=== PATIENT | female | born 1975 | race Asian ===

== ENCOUNTER 2020-03-17 11:24 | Outpatient (REF) | payer OTHER, SELFPAY ==
--- NOTE | 2020-03-17 | US_ITS ---
EXAMINATION: US PELVIS COMPLETE CLINICAL INFORMATION: Menorrhagia. COMPARISON: None. TECHNIQUE: Transabdominal and transvaginal ultrasound of the pelvis is performed. FINDINGS: The uterus is retroverted and retroflexed. It measures 8.9 x 5.6 x 5.5 cm. Endometrial thickness is 0.5 cm. There is a hypoechoic lesion along the posterior body of uterus measuring 1.0, 0.6 was 0.8 cm suggestive of small fibroid. No additional lesions seen. The myometrium is heterogeneous. There are small nabothian cysts seen in the cervix. Right ovary measures 2.3 x 1.2 x 1.5 cm and volume 2.2 mL. Left ovary measures 3.4 x 2.8 x 2.9 cm and volume 14.5 mL. There are multiple anechoic cysts seen with the largest cyst measuring 1.7 x 1.2 x 2.0 cm. There is no free fluid in the cul-de-sac. US/US transvaginal IMPRESSION: Small uterine fibroid. Mild endometrial thickening with measurement of 0.5 cm. Multiple cysts left ovary. Right ovary is unremarkable.
--- NOTE | 2020-03-17 | US_ITS ---
EXAMINATION: US PELVIS COMPLETE CLINICAL INFORMATION: Menorrhagia. COMPARISON: None. TECHNIQUE: Transabdominal and transvaginal ultrasound of the pelvis is performed. FINDINGS: The uterus is retroverted and retroflexed. It measures 8.9 x 5.6 x 5.5 cm. Endometrial thickness is 0.5 cm. There is a hypoechoic lesion along the posterior body of uterus measuring 1.0, 0.6 was 0.8 cm suggestive of small fibroid. No additional lesions seen. The myometrium is heterogeneous. There are small nabothian cysts seen in the cervix. Right ovary measures 2.3 x 1.2 x 1.5 cm and volume 2.2 mL. Left ovary measures 3.4 x 2.8 x 2.9 cm and volume 14.5 mL. There are multiple anechoic cysts seen with the largest cyst measuring 1.7 x 1.2 x 2.0 cm. There is no free fluid in the cul-de-sac. US/US pelvic complete IMPRESSION: Small uterine fibroid. Mild endometrial thickening with measurement of 0.5 cm. Multiple cysts left ovary. Right ovary is unremarkable.
== END 2020-03-17 11:25 | disposition home or self-care (01) ==
LOC: HO.US 11:24
PROVIDERS: PCP Internal Medicine; Visit Provider Internal Medicine
DX: N92.0 Excessive and frequent menstruation with regular cycle (principal)
CPT/HCPCS: 76830; 76856

== ENCOUNTER 2020-04-01 08:03 | Outpatient (REF) | payer OTHER, SELFPAY | END 2020-04-01 08:04 | disposition home or self-care (01) | LOC: HO.MDS 08:03 | PROVIDERS: PCP Internal Medicine; Visit Provider Internal Medicine | DX: D64.9 Anemia, unspecified (principal) | CPT/HCPCS: 96365; J2916 ==

== ENCOUNTER 2021-10-26 12:10 | Outpatient (REF) | payer OTHER, SELFPAY ==
--- NOTE | ~2021-10-26 | XR_ITS ---
EXAMINATION: XR KNEE, RIGHT CLINICAL INFORMATION: Osteoarthritis right knee. COMPARISON: None TECHNIQUE: Four views of the right knee. FINDINGS: There is severe loss of medial and patellofemoral compartment joint space with periarticular spurring. There is mild suprapatellar joint effusion. No loose bodies or bony erosive changes seen. The soft tissues are normal. No acute fracture or dislocation seen. XR/XR knee RT 4V IMPRESSION: Severe degenerative changes right knee with mild suprapatellar joint effusion. No visible acute fracture or dislocation seen.
== END 2021-10-26 12:11 | disposition home or self-care (01) ==
LOC: HO.XRAY 12:10
PROVIDERS: PCP Internal Medicine; Visit Provider Internal Medicine
DX: M17.11 Unilateral primary osteoarthritis, right knee (principal)
CPT/HCPCS: 73564

== ENCOUNTER 2021-11-28 08:35 | Outpatient (REF) | payer OTHER, SELFPAY ==
--- NOTE | ~2021-11-28 | XR_ITS ---
EXAMINATION: XR KNEE AP STANDING CLINICAL INFORMATION: Bilateral knee pain COMPARISON: Pain in knee TECHNIQUE: AP bilateral standing view of the knees was obtained. FINDINGS: There is moderate loss of medial compartment joint space with periarticular spurring. Mild periapical spurring lateral compartment both knees is noted as well. There are no loose bodies. No bony erosive changes. No visible acute fracture or dislocation XR/XR knee standing BI IMPRESSION: Moderate degenerative changes medial compartment with periapical spurring both knees. Minimal periarticular spurring lateral compartment both knees. No visible acute fracture or dislocation
== END 2021-11-28 08:36 | disposition home or self-care (01) ==
LOC: HO.HOSX 08:35
PROVIDERS: Visit Provider Orthopaedic Surgery
DX: M17.0 Bilateral primary osteoarthritis of knee (principal)
CPT/HCPCS: 73565; 99202

== ENCOUNTER 2022-05-10 12:35 | Day surgery (SDC) | payer OTHER, SELFPAY ==
[2022-05-10 06:16] VITALS: BMI 26.2
[2022-05-10 12:52] VITALS: BP 147/74; PULSE 66; RESP 16; TEMP 36.4; O2SAT 99
[2022-05-10] MEDS: Lactated Ringers 1,000 ML 50 ML IVCONT (13:02)
--- NOTE | 2022-05-10 13:36 | HO.ANESPROP2 ---
COUNTS INCLUDE 234 BEDS AT THE [facility] Active Problems Active Problems: All Active Problems (Updated 11/28/21 @ 11:17 by Buddy Zacarias) Bilateral primary osteoarthritis of knee (Acute) Past Medical History Medical History (Updated 11/28/21 @ 11:17 by Buddy Zacarias) Hypertension Family History Family history of problems with anesthesia: No Surgical History Surgical History (Updated 05/10/22 @ 12:40 by Osiris Espino RN) H/O breast surgery Hx of tubal ligation History of Problems with Anesthesia: No Social History Social History Patient Tobacco Use Status: Never used Tobacco Are you DNR?: No Advance Directives: No Advance Directives Information Provided: Yes Nutrition Risks: No Nutritional Risk Meds Allergies Allergy/AdvReac Type Severity Reaction Status Date / Time No Known Allergies Allergy Verified 11/28/21 11:06 Active Medications: Current Medications Lactated Ringer's (Lr) 1,000 mls @ 50 mls/hr IVCONT .Q20H HORTENCIA Last Admin: 05/10/22 13:02 Dose: 50 mls/hr Home Medications Medication Instructions Recorded Confirmed Last Taken Type amlodipine 5 mg tablet 5 mg PO DAILY 11/28/21 05/10/22 05/10/22 History metoprolol succinate 25 mg 25 mg PO DAILY 11/28/21 05/10/22 05/10/22 History tablet,extended release 24 hr acetaminophen 500 mg tablet 500 mg PO NEEDED PRN Headache 05/10/22 05/10/22 05/09/22 History Exam Exam Date and Time: May 10, 2022 1336 Height,Weight and Vital Signs: Height 5 ft 4 in Weight 69.4 kg Last Vital Signs Temp 97.6 F 05/10/22 12:52 Pulse 66 05/10/22 12:52 Resp 16 05/10/22 12:52 BP 147/74 H 05/10/22 12:52 Pulse Ox 99 05/10/22 12:52 O2 Del Method 05/10/22 12:52 Airway Mallampati Class: II TM Dist: >3cm Neck ROM: Full Heart: rrr Lungs: cta Assessment and Plan Assessment Anesthesia Assessment: Anesthesia Plan Discussed and Chart Reviewed Final Anesthetic Review Family History of Problems with Anesthesia: No History of Problems with Anesthesia: No NPO: Yes ASA Class: II Final Preanesthetic Review: No Changes in Pt Med Stat, Meds/Allgs Chart Reviewed and Consent Obtained/Reviewed Patient Risk: Intermediate Procedure Risk: Intermediate Anesthetic Plan Anesthetic Plan: MAC: Disposition: Standard PACU
--- NOTE | 2022-05-10 13:37 | MHC.SHP ---
Pre-Procedural Eval Section A Date of Service: 05/10/22 The patient is an INPATIENT: No Changes since office visit: No Cold of Flu in the past 2 weeks, No New Medical Problems, No Changes in Medication and No Patient answered all questions The History & Physical has been completed within 30 days and I have reviewed it.: Yes Section B Chief Complaint: screening Allergies: Allergies Allergy/AdvReac Type Severity Reaction Status Date / Time No Known Allergies Allergy Verified 11/28/21 11:06 Plan I have reviewed the history and physical and performed a pertinent physical examination on my patient. No changes have occurred unless specified. Time Spent With Patient Time: Total time managing care of this patient today ____ minutes.
--- NOTE | 2022-05-10 14:12 | PM.OP ---
Brief Operative Note Date of Service: 05/10/22 Pre-op diagnosis: antione, screening Post-op diagnosis: same Procedure: colonoscopy Surgeon: Ike Jones Anesthesia: MAC Was an Welding Machine Operator Gas Metal Arc used for this Procedure?: No Estimated blood loss (mL): 0 Pathology: other Condition: stable Disposition: PACU
[2022-05-10 14:14] VITALS: BP 112/69; PULSE 81; RESP 16; TEMP 36.4; O2SAT 99
[2022-05-10 14:29] VITALS: BP 128/89; PULSE 63; RESP 16; TEMP 36.3; O2SAT 100
--- NOTE | 2022-05-10 22:02 | OP_ITS ---
SURGEON: Ike Jones MD INDICATIONS: Iron-deficiency anemia and colon cancer screening. PREOPERATIVE DIAGNOSIS: POSTOPERATIVE DIAGNOSIS: PROCEDURE PERFORMED: Colonoscopy to the terminal ileum. ESTIMATED BLOOD LOSS: COMPLICATIONS: ANESTHESIA: Monitored anesthesia care. ASSISTANTS: SPECIMENS: DESCRIPTION OF PROCEDURE: Date: 05/10/22. A history and physical was performed. The risks and benefits of the procedure were explained to the patient. Informed consent was obtained. The patient was placed in the left lateral decubitus position. A digital rectal exam was performed and it was found to be normal. The Olympus pediatric video colonoscope introduced into the rectum and advanced to the cecum without difficulty. The cecum was identified by translumination, palpation, and identification of the ileocecal valve. Examination was performed. The scope was removed. She tolerated the procedure well and was returned to the recovery area in stable condition. FINDINGS: The terminal ileum was examined and appeared normal. The visualized colonic mucosa was normal. The quality of the prep was good. No polyps were identified. Retroflexed examination showed small internal hemorrhoids. IMPRESSION: Normal colonoscopy. RECOMMENDATIONS: 1. Followup as needed. 2. Repeat colonoscopy as recommended in 10 years for average risk individuals. MD ABDIRAHMAN Avery/JARED / [id number] MTDOmar
== END 2022-05-10 15:06 | disposition home or self-care (01) ==
PROVIDERS: PCP Internal Medicine; Visit Provider Internal Medicine Gastroenterology
PROC: 0DJD8ZZ Inspection of Lower Intestinal Tract, Via Natural or Artificial Opening Endoscopic (ICD-10-PCS; CPT 45378; principal; 2022-05-10 14:10)
DX: Z12.11 Encounter for screening for malignant neoplasm of colon (principal); D50.0 Iron deficiency anemia secondary to blood loss (chronic); N92.0 Excessive and frequent menstruation with regular cycle; K64.8 Other hemorrhoids; K59.00 Constipation, unspecified; I10 Essential (primary) hypertension; Z79.899 Other long term (current) drug therapy
CPT/HCPCS: 45378

== ENCOUNTER 2022-09-19 11:05 | Outpatient (REF) | payer OTHER, SELFPAY ==
[2022-09-19 13:23] LABS: Estimated Average Glucose 117 mg/dL; Hemoglobin A1c % 5.7 %
[2022-09-19 13:39] LABS: Alanine Aminotransferase 18 U/L (0-31); Albumin Level 3.7 g/dL (3.5-5.0); Alkaline Phosphatase 66 U/L (39-117); Anion Gap 11 (12-20); Aspartate Amino Transferase 23 U/L (5-31); Bilirubin Total 0.5 mg/dL (0.0-1.0); Blood Urea Nitrogen 8 mg/dL (9-16); Calcium 9.2 mg/dL (8.4-10.2); Carbon Dioxide 26 mmol/L (22-29); Chloride 106 mmol/L (96-108); Estimated Glomerular Filt Rate > 60; Glucose Random 94 mg/dL (60-115); Sodium 139 mmol/L (135-145); Total Protein 7.1 g/dL (6.5-8.0)
== END 2022-09-19 11:06 | disposition home or self-care (01) ==
LOC: HO.10HDL 11:05
PROVIDERS: Visit Provider Internal Medicine
DX: D50.9 Iron deficiency anemia, unspecified (principal); I10 Essential (primary) hypertension; N94.5 Secondary dysmenorrhea; R73.01 Impaired fasting glucose
CPT/HCPCS: 36415; 80053; 83036

== ENCOUNTER 2022-10-16 11:33 | Outpatient (REF) | payer OTHER, SELFPAY ==
--- NOTE | ~2022-10-16 | US_ITS ---
EXAMINATION: US PELVIS COMPLETE CLINICAL INFORMATION: Dysmenorrhea; the last menstrual period was on 09/21/2022. COMPARISON: Pelvic ultrasound dated 03/17/2020. TECHNIQUE: Transabdominal and transvaginal imaging were performed. FINDINGS: The uterus is of normal size and echogenicity, measuring 9.5 x 5.5 x 7.2 cm. A regular homogeneous endometrium is identified measuring 1.6 cm. Nabothian cysts are seen within the cervix. FIBROIDS: There is 1 fibroid seen. 1. Location: Upper rightward body, myometrial. Size: 1.4 x 1.0 x 1.1 cm. Prior: 1.0 x 0.6 x 0.8 cm. Fibroid characteristics: Hypoechoic. Both ovaries are of normal size and echogenicity. The right ovary measures 3.8 x 2.1 x 2.6 cm for a volume of 10.9 mL. The right ovary contains a 1.6 cm in maximal diameter corpus luteum cyst, with internal reticulated contents. The right ovary shows probable psammomatous calcifications, the largest measuring 2 mm. These are of doubtful clinical significance. The ovary measures 3.0 x 2.4 x 1.7 cm for a volume of 6.4 mL. There is no pelvic free fluid. No adnexal mass is seen. US/US pelvic and transvaginal IMPRESSION: 1. The endometrial stripe thickness is at the upper limits of normal. Gynecology evaluation and management is recommended. 2. There is uterine fibroid disease. 3. Incidental note is made of a 1.6 cm right ovarian corpus luteum cyst.
== END 2022-10-16 11:34 | disposition home or self-care (01) ==
LOC: HO.US 11:33
PROVIDERS: PCP Internal Medicine; Visit Provider Internal Medicine
DX: N94.5 Secondary dysmenorrhea (principal)
CPT/HCPCS: 76830; 76856

== ENCOUNTER 2023-10-09 11:39 | Outpatient (REF) | payer OTHER, SELFPAY ==
[2023-10-09 13:11] LABS: MANUAL DIFF FLAG NO
[2023-10-09 13:22] LABS: Basophils Percent Auto 0.5 % (0-2); Eosinophils Absolute Auto 0.1 X10*3/uL (0.0-0.4); Eosinophils Percent Auto 2.1 % (0-4); Hematocrit 38.5 % (37.0-47.0); Hemoglobin 12.9 g/dl (12.0-16.0); Imm Gran Abs Auto 0.01 X10*3/uL (0.00-0.03); Imm Gran Pct Auto 0.2 % (0.0-0.4); Lymphocytes Absolute Auto 1.5 X10*3/uL (1.2-4.9); Lymphocytes Percent Auto 27.1 % (20-40); Mean Corpuscular HGB Conc 33.5 g/dl (31.0-35.0); Mean Corpuscular Hemoglobin 28.6 pg (27.0-33.0); Mean Corpuscular Volume 85.4 fL (80.0-98.0); Monocytes Absolute Auto 0.5 X10*3/uL (0.1-1.2); Monocytes Percent Auto 8.4 % (2-11); Neutrophils Absolute Auto 3.5 x10*3/uL (2.0-8.3); Neutrophils Percent Auto 61.7 % (45-73); Platelet Count 297 X10*3/uL (160-400); Red Blood Count 4.51 X10*6/uL (4.20-5.50); Red Cell Distribution Width 13.8 % (11.0-16.0); White Blood Count 5.6 X10*3/uL (4.8-10.8)
[2023-10-09 13:47] LABS: Alanine Aminotransferase 40 U/L (0-31); Albumin Level 4.1 g/dL (3.5-5.0); Alkaline Phosphatase 73 U/L (39-117); Anion Gap 13 (12-20); Aspartate Amino Transferase 30 U/L (5-31); Bilirubin Total 0.6 mg/dL (0.0-1.0); Blood Urea Nitrogen 16 mg/dL (9-16); Carbon Dioxide 25 mmol/L (22-29); Chloride 106 mmol/L (96-108); Cholesterol 174 mg/dL (<200); Estimated Glomerular Filt Rate > 60; Glucose Random 119 mg/dL (60-115); HDL Cholesterol 48 mg/dL (>40); LDL Cholesterol Calculated 91 mg/dL (<100); Sodium 140 mmol/L (135-145); Total Protein 7.8 g/dL (6.5-8.0); Triglycerides 175 mg/dL (<150)
[2023-10-09 14:06] LABS: Thyroid Stimulating Hormone 3.05 uIU/mL (0.32-4.0)
== END 2023-10-09 11:40 | disposition home or self-care (01) ==
LOC: HO.10HDL 11:39
PROVIDERS: Visit Provider Internal Medicine
DX: Z00.00 Encounter for general adult medical examination without abnormal findings (principal); D50.8 Other iron deficiency anemias; I10 Essential (primary) hypertension; Z90.710 Acquired absence of both cervix and uterus
CPT/HCPCS: 36415; 80053; 80061; 84443; 85025

== ENCOUNTER 2024-07-08 16:12 | Emergency (ER) | payer OTHER, SELFPAY ==
--- NOTE | ~2024-07-08 | XR_ITS ---
CLINICAL HISTORY: R back pain 2 view chest x-ray Comparison: None Findings: No consolidation or effusion. Normal size heart. No acute fracture. IMPRESSION: 1. No acute findings. This document has been electronically signed by: Nima Pompa MD, PHD on 07/09/2024 00:22:03
--- NOTE | ~2024-07-08 | US_ITS ---
CLINICAL HISTORY: RUQ pain; RT FLANK PAIN US abdomen limited Comparison: None Findings: The visualized pancreas is normal. The liver is normal in size and echotexture. There is no intrahepatic bile duct dilatation. The common duct is 5 mm in diameter. The gallbladder is normal. There is no sonographic Marcial sign. The right kidney is 12.0 cm in length. No ascites. IMPRESSION: Unremarkable limited abdominal ultrasound. This document has been electronically signed by: Basia Ochoa MD on 07/08/2024 17:51:22
[2024-07-08 16:45] VITALS: BP 127/81; PULSE 85; RESP 18; TEMP 36.9; O2SAT 98; BMI 27.3
--- NOTE | 2024-07-08 16:52 | ED_ITS ---
HPI - Abdominal Pain General Chief Complaint: Abdominal Pain Stated Complaint: Flank pain Time Seen by Provider: 07/08/24 22:09 Source: patient Mode of arrival: ambulatory Limitations: language barrier (Gujar[place] Speaking, patient electing to have daughter for interpretation) History of Present Illness ED Provider: Merline Ramsey NP HPI narrative: patient is a 49-year-old female with past medical history of hypertension, endometriosis s/p hysterectomy who presents emergency department for evaluation of pain to the right back for the past 6 weeks. It is described as a burning pain, that intermittently radiates to the right upper quadrant of her abdomen. Denies identifiable exacerbating or alleviating factors. Has tried naproxen and ibuprofen without improvement in pain. Denies fevers, chills, chest pain, cough, shortness of breath, nausea, vomiting, hematemesis, diarrhea, constipation, hematochezia, melena, dysuria, urinary frequency, urinary urgency, urinary hesitancy, hematuria. Related Data Home Medications ?Medication ?Instructions ?Recorded ?Confirmed amlodipine 5 mg tablet 5 mg PO DAILY 11/28/21 05/10/22 metoprolol succinate 25 mg 25 mg PO DAILY 11/28/21 05/10/22 tablet,extended release 24 hr acetaminophen 500 mg tablet 500 mg PO NEEDED PRN Headache 05/10/22 05/10/22 Previous Rx's ?Medication ?Instructions ?Recorded lidocaine 5 % topical patch 1 patch topical DAILY #15 ea 07/09/24 Allergies Allergy/AdvReac Type Severity Reaction Status Date / Time No Known Allergies Allergy Verified 07/08/24 16:46 Review of Systems Review of Systems Yes all other systems are reviewed and are negative PMFSH Past Medical History Attestation statement: The following information was validated with the patient. Source: old records reviewed Medical History Hypertension Surgical History Hx of tubal ligation H/O breast surgery Social History Social History Patient Tobacco Use Status: Never used Tobacco Advance Directives: No Advance Directives Information Provided: No Do you have a plan to hurt others: No Plan Physical Exam ED Vital Signs: Vital Signs - 24 hr 07/08/24 16:45 04/01/25 21:59 Temperature 98.5 F 97.2 F Pulse Rate 85 72 Respiratory Rate 18 16 Blood Pressure 127/81 130/76 Pulse Oximetry 98 100 Oxygen Delivery Method Room Air BMI result Body Mass Index 27.3 Appearance: Alert.?Oriented to person, place and time. No acute distress.?Normal affect.?? Neck: Normal inspection.? Neck supple.?? CVS: Heart sounds normal. Normal heart rate and rhythm.? Pulses normal.?? Respiratory: No respiratory distress.? Lung sounds clear to auscultation bilaterally?? back: Localizes pain over right scapula. Overlying skin changes erythema or warmth. Abdomen: Soft and non-tender. No rebound tenderness at McBurney's point. Negative psoas sign. Negative Rovsing sign. Negative Marcial sign. No CVAT. Normoactive bowel sounds. No pulsatile mass.?? Skin: Skin warm and dry.? Normal skin color.? Extremities: No lower extremity edema.? Neuro: Moves all extremities spontaneously. Sensation intact bilaterally. Ambulates with normal steady gait. Course Course Course Narrative: This is an RME: Additional HPI, ROS, PE not included below will be deferred to primary provider. RME assessment and note performed by: Joann Lazo PA-C This is a [id number]-female, with a history of hypertension, who presents to the ER with a complaint of right flank pain, and right upper quadrant pain for the last 6 weeks. Denies any urinary symptoms. Patient with tenderness palpation in the right upper quadrant. No chest pain, shortness of breath, abdominal pain, nausea, vomiting or diarrhea. Plan: Labs, EKG, US, further ER eval needed Reevaluation(s) Reevaluation #1: D-dimer is negative, unlikely pulmonary embolism or pulmonary infarct, and again no acute respiratory symptoms. CXR is without acute pathology. Reviewed this case with my attending Dr. Lea who agrees at this time outpatient follow- up with PCP. prescription for Lidoderm patch has been sent to pharmacy. All questions answered with patient and daughter. Medical Decision Making Medical Decision Making MDM Narrative: Patient is a 49 female past medical history of hypertension, endometriosis s/p hysterectomy who presents emergency department for evaluation of right back pain localized to her lower scapula, with intermittent radiation to the right upper quadrant without exacerbation with dietary intake onset 6 weeks ago as per HPI. She has no associated respiratory, gastrointestinal, or genitourinary symptoms with this. Overall she is well-appearing, nontoxic, afebrile. She is without tachypnea tachycardia or hypoxia. She has a benign abdominal examination at the time of my evaluation, when seen during rapid medical examination it appears as though she did have some right upper quadrant tenderness on exam. Prior to my assumption of care CBC revealed no evidence of leukocytosis, a mild normocytic anemia not meeting transfusion criteria, no thrombocytopenia. No electrolyte derangement. No EYAD. LFTs and lipase within normal range. High sensitive troponin below detectable limits, EKG revealing normal sinus rhythm with ventricular rate of 75, QTC 404, no ST-elevation. Viral serologies are negative. She had an ultrasound of the upper quadrant of the abdomen without acute hepatobiliary pathology. Daughter reports that she had a urinalysis obtained at urgent care prior to arrival here which was without evidence of infection or even microscopic hematuria and she has no associated symptoms. Her pain is not over the flank but rather her scapular region, I have a lower suspicion for renal colic, nephrolithiasis, pyelonephritis. Although she does not endorse any respiratory symptoms, will obtain CXR to exclude mass, consolidation, infiltrate, in addition to D-dimer, she has not have risk factors for pulmonary embolism. Differential Diagnosis Differential Diagnoses: The differential diagnosis associated with the presentation includes (See narrative above) Admission/Observation Consideration of admission/observation: Escalation of care including admission/observation considered (See narrative above ) Lab Data MDM Lab Attestation statement: I reviewed the patient's lab results. 07/08/24 17:12 07/08/24 17:12 Labs: Lab Results 07/08/24 07/08/24 Range/Units 17:12 23:20 WBC 6.2 (4.8-10.8) X10*3/uL RBC 4.15 L (4.20-5.50) X10*6/uL Hgb 11.8 L (12.0-16.0) g/dl Hct 35.3 L (37.0-47.0) % MCV 85.1 (80.0-98.0) fL MCH 28.4 (27.0-33.0) pg MCHC 33.4 (31.0-35.0) g/dl RDW 13.3 (11.0-16.0) % Plt Count 349 (160-400) X10*3/uL MPV 9.2 L (9.4-12.3) fL Immature Gran % (Auto) 0.3 (0.0-0.4) % Neut % (Auto) 70.1 (45-73) % Lymph % (Auto) 18.7 L (20-40) % Stanley % (Auto) 8.6 (2-11) % Eos % (Auto) 2.0 (0-4) % Baso % (Auto) 0.3 (0-2) % Lymph # (Auto) 1.2 (1.2-4.9) X10*3/uL Stanley # (Auto) 0.5 (0.1-1.2) X10*3/uL Eos # (Auto) 0.1 (0.0-0.4) X10*3/uL Baso # (Auto) 0.0 (0.0-0.2) X10*3/uL Abs Immat Gran (auto) 0.02 (0.00-0.03) X10*3/uL Absolute Neuts (auto) 4.3 (2.0-8.3) x10*3/uL Absolute Nucleated RBC 0.000 (0.0-0.012) X10*3/uL Nucleated RBC % (auto) 0.0 (0.0-0.2) /100WBC D-Dimer High Sensitivty < 150 NG/ML Sodium 140 (135-145) mmol/L Potassium 4.0 (3.3-5.1) mmol/L Chloride 106 (96-108) mmol/L Carbon Dioxide 28 (22-29) mmol/L Anion Gap 10 L (12-20) BUN 16 (9-16) mg/dL Creatinine 0.90 (0.5-1.4) mg/dL Estim Creat Clear Calc 70.0 Estimated GFR > 60 Random Glucose 153 H (60-115) mg/dL Calcium 9.9 (8.4-10.2) mg/dL Magnesium 2.1 (1.6-2.6) mg/dL Total Bilirubin 0.3 (0.0-1.0) mg/dL Direct Bilirubin 0.1 (0.0-0.5) mg/dL AST 21 (5-31) U/L ALT 16 (0-31) U/L Alkaline Phosphatase 91 (39-117) U/L Troponin I High Sens < 2.7 (<3.5-17.0) ng/L Total Protein 7.8 (6.5-8.0) g/dL Albumin 3.9 (3.5-5.0) g/dL Lipase 39 (8-78) U/L Influenza Type A (PCR) NEGATIVE (Negative) Influenza Type B (PCR) NEGATIVE (Negative) RSV RNA Qual (PCR) NEGATIVE (Negative) SARS-CoV-2 RNA (RT-PCR) NEGATIVE (Negative) Radiology Impression Discussion of test interpretation with radiology: I have reviewed the radiologist's reading. Radiologist Impression: US abdomen limited Comparison: None Findings: The visualized pancreas is normal. The liver is normal in size and echotexture. There is no intrahepatic bile duct dilatation. The common duct is 5 mm in diameter. The gallbladder is normal. There is no sonographic Marcial sign. The right kidney is 12.0 cm in length. No ascites. IMPRESSION: Unremarkable limited abdominal ultrasound. 2 view chest x-ray Comparison: None Findings: No consolidation or effusion. Normal size heart. No acute fracture. IMPRESSION: 1. No acute findings. Independent Historian Clinical information obtained from an independent historian. History obtained from or confirmed by: Other ( Daughter) External Record Review External record reviewed: Outpatient record Discharge Plan Discharge Clinical Impression: Back pain Qualifiers: Back pain location: thoracic back pain Chronicity: acute Back pain laterality: right Qualified Code(s): M54.6 - Pain in thoracic spine Patient Disposition: Home, Self-Care Instructions: Back Pain (ED), R.I.C.E. Treatment (ED) Additional Instructions: as discussed, extensive workup in the emergency department today did not show an obvious cause for the ongoing pain that you have been experiencing. Please contact your primary care provider to arrange for a follow-up visit within the next week. I have sent a prescription for lidocaine patches to the pharmacy to applied to the area of pain on your back leave on for 12 hours and remove for 12 hour patch free. To prevent any skin irritation. You may return with any new or worsening symptoms or concerns Prescriptions: New lidocaine 5 % adhesive patch,medicated 1 patch topical DAILY Qty: 15 0RF Rx Instructions: leave on most painful area for up to 12 hrs No Action acetaminophen [Tylenol Ex Str Arthritis Pain] 500 mg Tablet 500 mg PO NEEDED PRN (Reason: Headache) metoprolol succinate 25 mg tablet extended release 24 hr 25 mg PO DAILY amlodipine 5 mg tablet 5 mg PO DAILY Referrals: Alnodra Menon MD [Primary Care Provider] - Print [facility]
--- NOTE | 2024-07-08 16:55 | ECG_ITS ---
Test Reason : FLANK PAIN Blood Pressure : */* mmHG Vent. Rate : 75 BPM Atrial Rate : 75 BPM P-R Int : 138 ms QRS Dur : 78 ms QT Int : 362 ms P-R-T Axes : 59 39 13 degrees QTcB Int : 404 ms Normal sinus rhythm Normal ECG No previous ECGs available Referred By: Joann Cunha Electronically Signed By: FIDEL GOLDBERG
[2024-07-08 17:17] LABS: MANUAL DIFF FLAG NO
[2024-07-08 17:35] LABS: Basophils Percent Auto 0.3 % (0-2); Eosinophils Absolute Auto 0.1 X10*3/uL (0.0-0.4); Hematocrit 35.3 % (37.0-47.0); Hemoglobin 11.8 g/dl (12.0-16.0); Imm Gran Abs Auto 0.02 X10*3/uL (0.00-0.03); Imm Gran Pct Auto 0.3 % (0.0-0.4); Lymphocytes Absolute Auto 1.2 X10*3/uL (1.2-4.9); Lymphocytes Percent Auto 18.7 % (20-40); Mean Corpuscular HGB Conc 33.4 g/dl (31.0-35.0); Mean Corpuscular Hemoglobin 28.4 pg (27.0-33.0); Mean Corpuscular Volume 85.1 fL (80.0-98.0); Mean Platelet Volume 9.2 fL (9.4-12.3); Monocytes Absolute Auto 0.5 X10*3/uL (0.1-1.2); Monocytes Percent Auto 8.6 % (2-11); Neutrophils Absolute Auto 4.3 x10*3/uL (2.0-8.3); Neutrophils Percent Auto 70.1 % (45-73); Platelet Count 349 X10*3/uL (160-400); Red Blood Count 4.15 X10*6/uL (4.20-5.50); Red Cell Distribution Width 13.3 % (11.0-16.0); White Blood Count 6.2 X10*3/uL (4.8-10.8)
[2024-07-08 17:45] LABS: Alanine Aminotransferase 16 U/L (0-31); Albumin Level 3.9 g/dL (3.5-5.0); Alkaline Phosphatase 91 U/L (39-117); Anion Gap 10 (12-20); Aspartate Amino Transferase 21 U/L (5-31); Bilirubin Direct 0.1 mg/dL (0.0-0.5); Bilirubin Total 0.3 mg/dL (0.0-1.0); Blood Urea Nitrogen 16 mg/dL (9-16); Calcium 9.9 mg/dL (8.4-10.2); Carbon Dioxide 28 mmol/L (22-29); Chloride 106 mmol/L (96-108); Estimated Glomerular Filt Rate > 60; Glucose Random 153 mg/dL (60-115); Lipase 39 U/L (8-78); Magnesium 2.1 mg/dL (1.6-2.6); Sodium 140 mmol/L (135-145); Total Protein 7.8 g/dL (6.5-8.0)
[2024-07-08 17:51] LABS: Troponin-I High Sensitivity < 2.7 ng/L (<3.5-17.0)
[2024-07-08 18:12] LABS: Influenza A PCR NEGATIVE (Negative); Influenza B PCR NEGATIVE (Negative); Resp Syncy Virus RNA Qual PCR NEGATIVE (Negative); SARS COV2 PCR INHOUSE NEGATIVE (Negative)
--- NOTE | 2024-07-08 21:53 | PC.NURSE ---
Pt is a pleasant, non-Turkmen speaking female who presents for evaluation of right-sided back pain that radiates down into right flank. Pain has been ongoing for approx 1 1/2 months with no relief. Pt was seen at Urgent Care prior to presenting to the ED, had a UA done that was negative. No known history of kidney stones or gallbladder problems. Denies trauma, recent travel, and any recent sick contacts. Fever is unknown. Pain rated 8/10. Food/fluid intake is WNL and no problems voiding reported.
[2024-07-08 21:59] VITALS: BP 130/76; PULSE 72; RESP 16; TEMP 36.2; O2SAT 100
[2024-07-08 23:40] LABS: D Dimer High Sensitivity < 150 NG/ML
[2024-07-09 01:51] VITALS: BP 130/76; PULSE 72; RESP 16; TEMP 36.2; O2SAT 100
== END 2024-07-09 01:53 | disposition home or self-care (01) ==
PROVIDERS: Nurse Practitioner Family; Physician Assistant Medical; Emergency Provider Emergency Medicine; PCP Internal Medicine
DX: M54.6 Pain in thoracic spine (principal); R10.11 Right upper quadrant pain; Z03.818 Encounter for observation for suspected exposure to other biological agents ruled out
CPT/HCPCS: 0241U; 36415; 71046; 76705; 80048; 80076; 83690; 83735; 84484; 85025; 85379; 93005; 99283; 99284

== ENCOUNTER → 2024-07-08 16:54 | Outpatient (BNV) | payer OTHER, SELFPAY | PROVIDERS: PCP Internal Medicine; Visit Provider Radiology Diagnostic Radiology | DX: M54.59 Other low back pain (principal) | CPT/HCPCS: 71046 ==

== ENCOUNTER → 2024-07-08 16:55 | Outpatient (BNV) | payer OTHER, SELFPAY | PROVIDERS: Emergency Provider Emergency Medicine; PCP Internal Medicine; Visit Provider Internal Medicine | DX: R10.9 Unspecified abdominal pain (principal) | CPT/HCPCS: 93010 ==

== ENCOUNTER 2025-01-20 10:14 | Outpatient (REF) | payer OTHER, SELFPAY ==
--- OUTSIDE RECORDS SUMMARY | 2025-01-20 11:56 | XMS_ITS | Patient Health Record ---
Author Organization [facility] Address [address] [place] [id number] Care Team Providers Care Employee'S Representative Name Role Phone Johnnajustin Alondra Primary Care Provider Ike Lofton Jr Unavailable Allergies No Known Allergies Reason For Referral No Information Medications Medication SIG (Take, Route, Frequency, Duration) Notes Start Date End Date Status Metoprolol Succinate ER 25 MG TAKE 1 TABLET BY MOUTH EVERY DAY Oral; Duration: 30 Active amLODIPine Besylate 5 MG Oral; Duration: 30 Active Multivitamin - 1 tablet Orally Once a day; Duration: 30 day(s) Not-Taking MiraLax (colon prep) 17 GM/SCOOP mixed with Gatorade or Crystal Light Orally begin at 5:00 p.m. the day before the procedure; Duration: 1 day 04/27/2022 Active Immunizations Vaccine Route Administration Date Status Comme nts Influenza Unknown 04/27/2022 Refused Social History Tobacco Use: Social History Observation Description Date Details (start date - stop date) Never Smoker NA - NA Tobacco Use/Smoking Question Answer Notes Patient is a nonsmoker Alcohol Screen Question Answer Notes Did you have a drink containing alcohol in the p ast year? No Points 0 Interpretation Negative Problems Problem Type SNOMED Code ICD Code Onset Dates Problem Status W/U Status Risk Notes Problem Colon cancer screening (634624300) Colon cancer screening (Z12.11) Active confirmed Problem Iron deficiency anemia due to chronic blood loss (499216085) Iron deficiency anemia due to chronic blood loss (D50.0) Active confirmed Problem Constipation (73165498) Constipation, unspecified constipation type (K59.00) Active confirmed Problem Anemia due to blood loss (521081042) Anemia due to blood loss (D50.0) Active confirmed Plan Of Treatment Future Test Test Name Order Date COLONOSCOPY 04/27/2022 Insurance Providers Payer Name Payer Address Payer Phone Subscriber Number Group Number Insured Name Patient Relationship to Insured Coverage Start Date Coverage End Date [facility] [employer] [address] [place] [address] [id number] JARON QUEVEDO Self - patient is the insured Medical (General) History Medical History History ICD Code hypertension Surgical History Surgery Date(Month/Year) Benign left breast lesion 04/2020
[2025-01-20 13:15] LABS: MANUAL DIFF FLAG NO
[2025-01-20 13:35] LABS: Hematocrit 38.2 % (37.0-47.0); Hemoglobin 12.2 g/dl (12.0-16.0); Imm Gran Abs Auto 0.01 X10*3/uL (0.00-0.03); Imm Gran Pct Auto 0.2 % (0.0-0.4); Lymphocytes Absolute Auto 1.2 X10*3/uL (1.2-4.9); Mean Corpuscular HGB Conc 31.9 g/dl (31.0-35.0); Mean Corpuscular Hemoglobin 27.5 pg (27.0-33.0); Mean Corpuscular Volume 86.2 fL (80.0-98.0); NRBC Abs Auto 0.000 X10*3/uL (0.0-0.012); NRBC Pct Auto 0.0 /100WBC (0.0-0.2); Platelet Count 303 X10*3/uL (160-400); Red Blood Count 4.43 X10*6/uL (4.20-5.50); White Blood Count 5.6 X10*3/uL (4.8-10.8)
[2025-01-20 13:49] LABS: Alanine Aminotransferase 23 U/L (0-31); Albumin Level 4.0 g/dL (3.5-5.0); Alkaline Phosphatase 89 U/L (39-117); Anion Gap 10 (12-20); Aspartate Amino Transferase 27 U/L (5-31); Blood Urea Nitrogen 12 mg/dL (9-16); Calcium 9.5 mg/dL (8.4-10.2); Carbon Dioxide 26 mmol/L (22-29); Chloride 108 mmol/L (96-108); Cholesterol 158 mg/dL (<200); Estimated Glomerular Filt Rate > 60; HDL Cholesterol 48 mg/dL (>40); Potassium 3.9 mmol/L (3.3-5.1); Sodium 140 mmol/L (135-145); Total Protein 7.4 g/dL (6.5-8.0); Triglycerides 117 mg/dL (<150)
== END 2025-01-20 10:15 | disposition home or self-care (01) ==
LOC: HO.10HDL 10:14
PROVIDERS: Visit Provider Internal Medicine
DX: Z00.00 Encounter for general adult medical examination without abnormal findings (principal); D50.8 Other iron deficiency anemias; G47.00 Insomnia, unspecified; M25.512 Pain in left shoulder; N95.1 Menopausal and female climacteric states; Q60.3 Renal hypoplasia, unilateral
CPT/HCPCS: 36415; 80053; 80061; 85025